=== PATIENT | male | born 1960 | race Caucasian/White ===

== ENCOUNTER 2018-05-10 09:48 | Day surgery (SDC) | payer OTHER, BC ==
[2018-05-10] MEDS ORDERED: MIDAZOLAM 1 MG/ML 2 ML INJ ×2 (12:07)
[2018-05-10] MEDS ORDERED: FENTAnyl 50 MCG/ML VIAL (12:08)
== END 2018-05-10 14:11 | disposition home or self-care (01) ==
LOC: GIL 09:48
DX: Z12.11 Encounter for screening for malignant neoplasm of colon (principal); K29.50 Unspecified chronic gastritis without bleeding; K64.8 Other hemorrhoids
CPT/HCPCS: 43239; 88305; 88312